=== PATIENT | male | born 1985 ===

== ENCOUNTER 2016-11-13 13:12 | Emergency (ER) | payer MEDICAID ==
[2016-11-13 13:12] VITALS: BMI 22.4
[2016-11-13 13:18] VITALS: BP 158/101; PULSE 83; RESP 18; TEMP 97.7; O2SAT 97
--- NOTE | 2016-11-13 13:54 | ED PDOC ---
HPI: General Adult Time Seen by Provider: 11/13/16 13:52 Chief Complaint (Nursing): Upper Extremity Problem/Injury Chief Complaint (Provider): shoulder pain/numbness History Per: Patient (31 y/o male h/o smoking and ?HTN here for evaluation of left shoulder pain sharp associated with numbness intermittent today prior to arrival. Patient states residents by where he lived called ambulance and he was brought to hospital for evaluation of cardiac illness but he does not want to have evaluation. Denies any traumatic injury. States pain feels resolved at this time. Did not take any medication prior to ED arrival.) Past Medical History Reviewed: Historical Data, Nursing Documentation, Vital Signs Vital Signs: Last Vital Signs Temp 97.7 F 11/13/16 13:14 Pulse 83 11/13/16 13:14 Resp 18 11/13/16 13:14 BP 158/101 H 11/13/16 13:14 Pulse Ox 97 11/13/16 13:14 - Medical History PMH: Fractures Denies: HIV, Chronic Kidney Disease - Family History Family History: States: Unknown Family Hx, Hypertension (mother) Denies: [place] - Home Medications Home Medications: Ambulatory Orders Medication Instructions Recorded Dicyclomine [Bentyl] 10 mg PO QID PRN #12 cap 06/08/16 Ibuprofen [Motrin Tab] 600 mg PO Q6 #30 tab 07/31/16 - Allergies Allergies/Adverse Reactions: Allergies Allergy/AdvReac Type Severity Reaction Status Date / Time No Known Allergies Allergy Verified 11/13/16 13:13 Review of Systems ROS Statement: Except As Marked, All Systems Reviewed And Found Negative Musculoskeletal: Positive for: Shoulder Pain Physical Exam - Reviewed Nursing Documentation Reviewed: Yes Vital Signs Reviewed: Yes - Physical Exam Appears: Positive for: Well, Non-toxic, No Acute Distress Head Exam: Positive for: ATRAUMATIC, NORMAL INSPECTION, NORMOCEPHALIC Skin: Positive for: Normal Color, Warm, DRY Eye Exam: Positive for: EOMI, Normal appearance, PERRL ENT: Positive for: Normal ENT Inspection Neck: Positive for: Normal, Painless ROM Cardiovascular/Chest: Positive for: Regular Rate, Rhythm Respiratory: Positive for: CNT, Normal Breath Sounds Gastrointestinal/Abdominal: Positive for: Normal Exam, Bowel Sounds, Soft Back: Positive for: Normal Inspection Extremity: Positive for: Normal ROM Neurologic/Psych: Positive for: Alert, Oriented - ECG O2 Sat by Pulse Oximetry: 97 - Progress ED Course And Treament: Patient's vital signs reviewed. BP noted elevated. Patient disallowed physical exam Patient does not want ASA/EKG/CXR/bloodwork. Has signed AMA paperwork. D/w him risk of missed heart attack/pneumothorax/ /permanent disability. Disposition - Clinical Impression Clinical Impression: Shoulder pain - Patient ED Disposition Is Patient to be Admitted: No - Disposition Disposition: Against Medical Advice Disposition Time: 13:56 Condition: FAIR
== END 2016-11-13 14:02 | disposition left against medical advice (07) ==
LOC: H.ER 13:12
DX: M25.512 Pain in left shoulder (principal); I10 Essential (primary) hypertension; R20.2 Paresthesia of skin

== ENCOUNTER 2016-12-22 16:38 | Emergency (ER) | payer MEDICAID, OTHER ==
[2016-12-22 16:38] VITALS: BMI 22.4
[2016-12-22 16:45] VITALS: BP 140/80; PULSE 80; RESP 16; TEMP 98.2; O2SAT 99
--- NOTE | 2016-12-22 17:14 | ED PDOC ---
Lower Extremity Pain/Injury Time Seen by Provider: 12/22/16 17:04 Chief Complaint (Nursing): Lower Extremity Problem/Injury Chief Complaint (Provider): Left ankle pain History Per: Patient History/Exam Limitations: no limitations Onset/Duration Of Symptoms: Days Current Symptoms Are (Timing): Still Present Additional Complaint(s): Lucrecia is a 31 y/o male who presents to the ED complaining of left ankle pain associated with numbness and tingling to the lateral aspect, onset after playing basketball several days ago. Patient denies specific trauma at that time. He has a history of left ankle surgery in the past and was known to Technical Aid, Dr. Alves. PMD: None Past Medical History Reviewed: Historical Data, Nursing Documentation, Vital Signs Vital Signs: Last Vital Signs Temp 98.2 F 12/22/16 16:43 Pulse 80 12/22/16 16:43 Resp 16 12/22/16 16:43 BP 140/80 12/22/16 16:43 Pulse Ox 99 12/22/16 16:43 - Medical History PMH: Fractures Denies: HIV, Chronic Kidney Disease - Surgical History Other surgeries: Left ankle surgery - Family History Family History: States: Unknown Family Hx, Hypertension (mother) Denies: [place] - Social History Current smoker - smoking cessation education provided: Yes (Light) Alcohol: < 2 Drinks/Day Drugs: Denies - Home Medications Home Medications: Ambulatory Orders Medication Instructions Recorded Dicyclomine [Bentyl] 10 mg PO QID PRN #12 cap 06/08/16 Ibuprofen [Motrin Tab] 600 mg PO Q6 #30 tab 07/31/16 - Allergies Allergies/Adverse Reactions: Allergies Allergy/AdvReac Type Severity Reaction Status Date / Time No Known Allergies Allergy Verified 12/22/16 16:43 Review of Systems ROS Statement: Except As Marked, All Systems Reviewed And Found Negative Musculoskeletal: Positive for: Foot Pain (Left ankle pain) Neurological: Positive for: Numbness, Other (tingling, to the lateral aspect of left foot) Physical Exam - Reviewed Nursing Documentation Reviewed: Yes Vital Signs Reviewed: Yes - Physical Exam Appears: Positive for: Well, Non-toxic, No Acute Distress Head Exam: Positive for: ATRAUMATIC, NORMAL INSPECTION, NORMOCEPHALIC Skin: Positive for: Normal Color, Warm, Dry Eye Exam: Positive for: EOMI, Normal appearance, PERRL Neck: Positive for: Normal, Painless ROM, Supple Extremity: Positive for: Other (left ankle: medial ankle pain swelling tenderness to achiles. ) Neurologic/Psych: Positive for: Alert, Oriented - ECG O2 Sat by Pulse Oximetry: 99 (RA) Pulse Ox Interpretation: Normal - Radiology X-Ray: Interpreted by Me X-Ray Interpretation: No Acute Disease Medical Decision Making Medical Decision Making: Time: 17:08 Clinical Impression: Left ankle pain Initial Plan: --Ordered X-Ray Left Ankle --Pending Podiatry consult Podiatry will pace pt in splint and have f.u with pmd. Scribe Attestation: Documented by Magaly Felix, acting as a scribe for Alesia Andrade PA-C Provider Scribe Attestation: All medical record entries made by the Scribe were at my direction and personally dictated by me. I have reviewed the chart and agree that the record accurately reflects my personal performance of the history, physical exam, medical decision making, and the department course for this patient. I have also personally directed, reviewed, and agree with the discharge instructions and disposition. Disposition - Clinical Impression Clinical Impression: Ankle pain - Patient ED Disposition Is Patient to be Admitted: No Counseled Patient/Family Regarding: Studies Performed, Diagnosis, Need For Followup - Disposition Referrals: Podiatry Clinic [Outside] Markel Alves MD [Staff Provider] - Disposition: Routine/Home Disposition Time: 19:10 Condition: STABLE Instructions: Swollen Joint (ED) Forms: [employer] (Montenegrin)
--- NOTE | 2016-12-22 20:37 | CP.PCM.CON ---
History of Present Illness - History of Present Illness History of Present Illness: 31 y/o male with no significant PMH seen in ED by podiatry for complaints of left ankle pain. Patient states he was playing basketball two days ago and since then he has experienced noticeable swelling and pain in the back of the left ankle. Patient denies any direct trauma or fall. and states that the pain and swelling did not begin until a few hours later. Patient states he has difficulty walking and going up on his toes. Patient admits to mild pain relief with extra strength Tylenol. Patient denies any F/C/N/V/SOB. PSH: left ankle ORIF (Feb 2015) with Dr. Alves All: NKDA Social: social EtOH. Cigarette smoker 5-10 cigarettes/day. Denies drug use. Review of Systems - Review of Systems All systems: reviewed and no additional remarkable complaints except (per HPI) Past Patient History - Infectious Disease Hx of Infectious Diseases: None - Past Medical History & Family History Past Medical History?: Yes - Past Social History Alcohol: < 2 Drinks/Day Drugs: Denies - CARDIAC Hx Cardiac Disorders: No - PULMONARY Hx Respiratory Disorders: No - NEUROLOGICAL Hx Neurological Disorder: No - HEENT Hx HEENT Problems: No - RENAL Hx Chronic Kidney Disease: No - ENDOCRINE/METABOLIC Hx Endocrine Disorders: No - HEMATOLOGICAL/ONCOLOGICAL Hx Human Immunodeficiency Virus (HIV): No - INTEGUMENTARY Hx Dermatological Problems: No - MUSCULOSKELETAL/RHEUMATOLOGICAL Hx Fractures: Yes - GASTROINTESTINAL Hx Gastrointestinal Disorders: No - GENITOURINARY/GYNECOLOGICAL Hx Genitourinary Disorders: No - PSYCHIATRIC Hx Psychophysiologic Disorder: No Hx Emotional Abuse: No Hx Physical Abuse: No Hx Substance Use: No (stopped PCP) - SURGICAL HISTORY Hx Surgeries: Yes Hx Orthopedic Surgery: Yes (LT ANKLE, JAW) - ANESTHESIA Hx Anesthesia: Yes Hx Anesthesia Reactions: No Meds Allergies/Adverse Reactions: Allergies Allergy/AdvReac Type Severity Reaction Status Date / Time No Known Allergies Allergy Verified 12/22/16 16:43 Physical Exam - Constitutional Appears: Well, Non-toxic, No Acute Distress - Extremities Exam Additional comments: Left lower extremity focused examination: Vasc: DP/PT pulses palpable 2/4. Temperature gradient warm to cool. CFT < 3 sec to all digits. Mild pedal edema noted to posterior L ankle and heel. Derm: No open lesions, no erythema, no rashes, no clinical signs of infection Neuro: Protective sensation grossly intact Ortho: Tenderness upon palpation of Achilles tendon approx 4 cm proximal to tendon insertion. Tenderness elicited upon ankle plantarflexion, both without and against resistance. Tenderness upon squeezing of mid-calf posteriorly. - Neurological Exam Neurological exam: Alert, Oriented x3 - Psychiatric Exam Psychiatric exam: Normal Affect, Normal Mood Results - Vital Signs Recent Vital Signs: Last Vital Signs Temp 98.2 F 12/22/16 16:43 Pulse 80 12/22/16 16:43 Resp 16 12/22/16 16:43 BP 140/80 12/22/16 16:43 Pulse Ox 99 12/22/16 19:10 Assessment & Plan - Assessment and Plan (Free Text) Assessment: 31 y/o male seen in ED for left Achilles tendon pain. Plan: Pt seen and evaluated in ED Discussed plan in detail with Dr. Alves X-rays of L ankle reviewed- no fracture, no dislocation. Haziness noted to Kager 's triangle indicating possible Achilles injury Applied posterior splint to LLE Pt dispensed crutches and to be non weight-bearing until he is next seen by podiatry Patient instructed to F/U in clinic on Saturday with Dr. Alves as an outpatient - Date & Time Date: 12/22/16 Time: 19:30
--- NOTE | 2016-12-23 09:29 | RAD ---
HISTORY: ankle pain COMPARISON: No prior FINDINGS: BONES: Status post bimalleolar fracture with fixation screws in the medial malleolus and ossification of the inferior syndesmotic ligament. JOINTS: Normal. No osteoarthritis. SOFT TISSUE: Normal. OTHER FINDINGS: None . IMPRESSION: Status post bimalleolar fracture with fixation screws in the medial malleolus and ossification of the inferior syndesmotic ligament.
== END 2016-12-22 19:30 | disposition home or self-care (01) ==
LOC: H.ER 16:38
DX: M25.572 Pain in left ankle and joints of left foot (principal); F17.200 Nicotine dependence, unspecified, uncomplicated; Y93.67 Activity, basketball

== ENCOUNTER 2017-05-03 22:46 | Emergency (ER) | payer MEDICAID, OTHER ==
[2017-05-03 22:46] VITALS: BMI 22.4
--- NOTE | 2017-05-03 22:49 | ED PDOC ---
HPI: CCC, URI, Sore Throat Time Seen by Provider: 05/03/17 22:49 Chief Complaint (Provider): cough History Per: Patient Past Medical History - Medical History PMH: Fractures Denies: HIV, Chronic Kidney Disease - Family History Family History: States: Unknown Family Hx, Hypertension (mother) Denies: [place] - Home Medications Home Medications: Ambulatory Orders Medication Instructions Recorded Dicyclomine [Bentyl] 10 mg PO QID PRN #12 cap 06/08/16 Ibuprofen [Motrin Tab] 600 mg PO Q6 #30 tab 07/31/16 - Allergies Allergies/Adverse Reactions: Allergies Allergy/AdvReac Type Severity Reaction Status Date / Time No Known Allergies Allergy Verified 12/22/16 16:43
[2017-05-03 22:56] VITALS: BP 156/101; PULSE 78; RESP 16; TEMP 97.4; O2SAT 100
--- NOTE | 2017-05-04 01:09 | ED PDOC ---
HPI: General Adult Time Seen by Provider: 05/03/17 22:49 Chief Complaint (Nursing): Cough, Cold, Congestion Chief Complaint (Provider): Coughed up blood History Per: Patient History/Exam Limitations: no limitations Have you had recent travel within the past 21 days to any of the following countries: [place], [place], [place] or [place]?: No Additional Complaint(s): Pt states he came home from work and coughed. Pt states he saw blood. Pt states he has was not coughing prior and has not coughed since. Pt denies current pain but states his throat hurt slightly after coughing. Pt denies chest pain or fever. Pt states he has not traveled in last 6 months. Past Medical History Reviewed: Historical Data, Nursing Documentation, Vital Signs Vital Signs: Last Vital Signs Temp 97.4 F L 05/03/17 22:55 Pulse 78 05/03/17 22:55 Resp 16 05/03/17 22:55 BP 156/101 H 05/03/17 22:55 Pulse Ox 100 05/03/17 22:55 - Medical History PMH: Fractures Denies: HIV, Chronic Kidney Disease - Surgical History Surgical History: No Surg Hx - Family History Family History: States: Unknown Family Hx, Hypertension (mother) Denies: [place] - Living Arrangements Living Arrangements: With Family - Social History Current smoker - smoking cessation education provided: No Alcohol: Occasional - Home Medications Home Medications: Ambulatory Orders Medication Instructions Recorded Dicyclomine [Bentyl] 10 mg PO QID PRN #12 cap 06/08/16 Ibuprofen [Motrin Tab] 600 mg PO Q6 #30 tab 07/31/16 - Allergies Allergies/Adverse Reactions: Allergies Allergy/AdvReac Type Severity Reaction Status Date / Time No Known Allergies Allergy Verified 12/22/16 16:43 Review of Systems ROS Statement: Except As Marked, All Systems Reviewed And Found Negative Constitutional: Negative for: Fever, Chills Cardiovascular: Negative for: Chest Pain Respiratory: Positive for: Cough (x 1 episode ), Hemoptysis. Negative for: Sputum, Wheezing Gastrointestinal: Negative for: Nausea, Vomiting, Abdominal Pain Genitourinary Male: Negative for: Dysuria Physical Exam - Reviewed Nursing Documentation Reviewed: Yes Vital Signs Reviewed: Yes - Physical Exam Appears: Positive for: Well, Non-toxic, No Acute Distress Head Exam: Positive for: ATRAUMATIC, NORMAL INSPECTION, NORMOCEPHALIC Skin: Positive for: Normal Color, Warm, DRY Eye Exam: Positive for: Normal appearance ENT: Positive for: Normal ENT Inspection Neck: Positive for: Normal, Painless ROM Cardiovascular/Chest: Positive for: Regular Rate, Rhythm Respiratory: Positive for: CNT, Normal Breath Sounds Gastrointestinal/Abdominal: Positive for: Normal Exam, Bowel Sounds, Soft. Negative for: Tenderness Back: Positive for: Normal Inspection Extremity: Positive for: Normal ROM Neurologic/Psych: Positive for: Alert, Oriented - ECG O2 Sat by Pulse Oximetry: 100 Medical Decision Making Medical Decision Making: CXR and case reviewed with Dr. Yip, Disposition - Clinical Impression Clinical Impression: Normal exam - Patient ED Disposition Is Patient to be Admitted: No Counseled Patient/Family Regarding: Diagnosis, Need For Followup - Disposition Disposition: Routine/Home Disposition Time: 01:03 Condition: GOOD Instructions: Normal Exam (ED) Forms: [employer] (Romansh)
--- NOTE | 2017-05-04 08:44 | RAD ---
HISTORY: cough COMPARISON: No prior. TECHNIQUE: Chest PA and lateral FINDINGS: LUNGS: No active pulmonary disease. PLEURA: No significant pleural effusion identified. No pneumothorax apparent. CARDIOVASCULAR: Normal. OSSEOUS STRUCTURES: No significant abnormalities. VISUALIZED UPPER ABDOMEN: Normal. OTHER FINDINGS: None. IMPRESSION: No active disease.
== END 2017-05-04 01:20 | disposition home or self-care (01) ==
LOC: H.ER 22:46
DX: R05 Cough (principal)

== ENCOUNTER 2017-05-14 01:21 | Emergency (ER) | payer OTHER ==
[2017-05-14 01:21] VITALS: BMI 22.4
[2017-05-14 01:35] VITALS: PULSE 76; RESP 17; TEMP 98.6; O2SAT 100
--- NOTE | 2017-05-14 01:51 | ED PDOC ---
HPI: General Adult Time Seen by Provider: 05/14/17 01:39 Chief Complaint (Nursing): Medical Clearance Chief Complaint (Provider): clearance for incarceration History Per: Patient History/Exam Limitations: no limitations Additional History Per: Patient Additional Complaint(s): 32 y/o male here in police custody for clearance for incarceration. Patient denies acute medical or psychiatric complaints. Past Medical History Reviewed: Historical Data, Nursing Documentation, Vital Signs Vital Signs: Last Vital Signs Temp 98.6 F 05/14/17 01:32 Pulse 76 05/14/17 01:32 Resp 17 05/14/17 01:32 BP 132/71 05/14/17 02:33 Pulse Ox 100 05/14/17 01:51 - Medical History PMH: Fractures Denies: HIV, Chronic Kidney Disease - Family History Family History: States: Unknown Family Hx, Hypertension (mother) Denies: [place] - Home Medications Home Medications: Ambulatory Orders Medication Instructions Recorded Dicyclomine [Bentyl] 10 mg PO QID PRN #12 cap 06/08/16 Ibuprofen [Motrin Tab] 600 mg PO Q6 #30 tab 07/31/16 - Allergies Allergies/Adverse Reactions: Allergies Allergy/AdvReac Type Severity Reaction Status Date / Time No Known Allergies Allergy Verified 12/22/16 16:43 Review of Systems ROS Statement: Except As Marked, All Systems Reviewed And Found Negative Physical Exam - Reviewed Nursing Documentation Reviewed: Yes Vital Signs Reviewed: Yes - Physical Exam Appears: Positive for: Well, Non-toxic, No Acute Distress Head Exam: Positive for: ATRAUMATIC, NORMAL INSPECTION, NORMOCEPHALIC Skin: Positive for: Normal Color Eye Exam: Positive for: Normal appearance ENT: Positive for: Normal ENT Inspection Cardiovascular/Chest: Positive for: Regular Rate, Rhythm Respiratory: Positive for: Normal Breath Sounds Gastrointestinal/Abdominal: Positive for: Normal Exam Back: Positive for: Normal Inspection Extremity: Positive for: Normal ROM Neurologic/Psych: Positive for: Alert, Oriented - ECG O2 Sat by Pulse Oximetry: 100 - Progress ED Course And Treament: Patient evaluated by care worker and cleared for discharge as per Dr. Dubose. Disposition - Clinical Impression Clinical Impression: Adjustment disorder, Medical clearance for incarceration - Patient ED Disposition Is Patient to be Admitted: No Counseled Patient/Family Regarding: Diagnosis, Need For Followup - Disposition Disposition: Routine/Home Disposition Time: 03:21 Condition: GOOD Additional Instructions: Patient medically and psychiatrically cleared for incarceration
[2017-05-14 02:54] VITALS: BP 132/71
== END 2017-05-14 03:40 ==
LOC: H.ER 01:21
DX: F43.20 Adjustment disorder, unspecified (principal)

== ENCOUNTER 2017-11-05 05:15 | Emergency (ER) | payer SELFPAY ==
[2017-11-05 05:16] VITALS: BMI 22.4
[2017-11-05 05:28] VITALS: PULSE 78; RESP 16; TEMP 97.8; O2SAT 100
[2017-11-05 05:30] VITALS: BP 146/94
--- NOTE | 2017-11-05 05:58 | ED PDOC ---
Lower Extremity Pain/Injury Time Seen by Provider: 11/05/17 05:34 Chief Complaint (Nursing): Chest Pain Chief Complaint (Provider): numbness left foot History Per: Patient History/Exam Limitations: no limitations Onset/Duration Of Symptoms: Hrs Current Symptoms Are (Timing): Gone Now Additional Complaint(s): 32 y/o male brought in by EMS for evaluation of numbness to left lower extremity x 1 hour. 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 Patient states symptoms then traveled up to his knee. Patient states he tried to stretch the leg and then he got nervous and started to feel short of breath, so he took a shot of liquor to see if that would help. Patient reports intermittent numbness to left ankle since having surgery to the ankle 2 years ago. Denies fever, headache, extremity weakness, cough, chest pain, palpitations, abdominal pain, pain or new trauma to left lower extremity, leg pain/swelling, recent travel. Patient reports all symptoms have resolved upon arrival to ED. Patient reports similar "panic attacks" bringing him to ED in the past. Past Medical History Reviewed: Historical Data, Nursing Documentation, Vital Signs Vital Signs: Last Vital Signs Temp 97.8 F 11/05/17 05:27 Pulse 78 11/05/17 05:27 Resp 16 11/05/17 05:27 BP 146/94 H 11/05/17 05:30 Pulse Ox 100 11/05/17 05:27 - Medical History PMH: Fractures Denies: Diabetes, Hepatitis, HIV, HTN, Chronic Kidney Disease, Seizures, Sexually Transmitted Disease - Surgical History Surgical History: No Surg Hx - Family History Family History: States: Unknown Family Hx, Hypertension (mother) Denies: [place] - Home Medications Home Medications: Ambulatory Orders Medication Instructions Recorded Dicyclomine [Bentyl] 10 mg PO QID PRN #12 cap 06/08/16 Ibuprofen [Motrin Tab] 600 mg PO Q6 #30 tab 07/31/16 - Allergies Allergies/Adverse Reactions: Allergies Allergy/AdvReac Type Severity Reaction Status Date / Time No Known Allergies Allergy Verified 12/22/16 16:43 Wells Criteria for PE - Wells Criteria for Pulmonary Embolism Clinical Signs and Symptoms of DVT: No P.E is #1 Diagnosis, or Equally Likely: No Heart Rate >100: No Immobilization at least 3 days;Surgery previous 4 weeks: No Previous, objectively diagnosed PE or DVT: No Hemoptysis: No Malignancy w/treatment within 6 months, or palliative: No Total Score: 0 Review of Systems ROS Statement: Except As Marked, All Systems Reviewed And Found Negative Respiratory: Positive for: Shortness of Breath Neurological: Positive for: Numbness (left ankle) Physical Exam - Reviewed Nursing Documentation Reviewed: Yes Vital Signs Reviewed: Yes - Physical Exam Appears: Positive for: Well, Non-toxic, Uncomfortable (anxious) Head Exam: Positive for: ATRAUMATIC, NORMAL INSPECTION, NORMOCEPHALIC Skin: Positive for: Normal Color Eye Exam: Positive for: Normal appearance ENT: Positive for: Normal ENT Inspection Cardiovascular/Chest: Positive for: Regular Rate, Rhythm Respiratory: Positive for: Normal Breath Sounds Gastrointestinal/Abdominal: Positive for: Normal Exam Back: Positive for: Normal Inspection Extremity: Positive for: Normal ROM, Other (surgical scar left medial ankle) Neurologic/Psych: Positive for: Alert, Oriented. Negative for: Motor/Sensory Deficits - ECG ECG: Positive for: Viewed By Me (reviewed by ED attending) ECG Rhythm: Positive for: Sinus Rhythm O2 Sat by Pulse Oximetry: 100 Pulse Ox Interpretation: Normal - Progress ED Course And Treament: EKG, accucheck Patient without symptoms upon arrival to ED; states he is feeling better and would like to go home. Patient was educated on findings, advised to follow up with PMD 2-3 days. Return precautions given Disposition - Clinical Impression Clinical Impression: Paresthesia of left foot, Anxiety - Patient ED Disposition Is Patient to be Admitted: No Counseled Patient/Family Regarding: Studies Performed, Diagnosis, Need For Followup - Disposition Referrals: Mookie Barrera MD [Primary Care Provider] - Disposition: Routine/Home Disposition Time: 06:00 Condition: IMPROVED Instructions: Anxiety, Adult (DC), Paresthesias (DC) Forms: [employer] (Swedish)
--- NOTE | 2017-11-05 10:03 | CARD ---
APPROVED REPORT EKG Measurement Heart [id number] <Conclusion> Normal sinus rhythm Normal ECG
== END 2017-11-05 06:07 | disposition home or self-care (01) ==
LOC: H.ER 05:15
DX: F41.9 Anxiety disorder, unspecified (principal); R20.2 Paresthesia of skin